=== PATIENT | male | born 1985 | race Caucasian/White ===

== ENCOUNTER 2017-07-05 09:44 | Emergency (ER) | payer OTHER ==
[2017-07-05 09:55] VITALS: BP 158/101
--- NOTE | 2017-07-05 10:33 | EDM.PDOC ---
ED HPI GENERAL MEDICAL PROBLEM - General Chief Complaint: Skin Complaint Stated Complaint: RASH/POSS. ALLERGIC REACTION Time Seen by Provider: 07/05/17 09:55 Source of Information: Reports: Patient History Limitations: Reports: No Limitations - History of Present Illness INITIAL COMMENTS - FREE TEXT/NARRATIVE: The patient presents with a generalized rash. This started about 1 week ago. The patient traveled to [place] for vacation. He was in the [facility]. The rash is itchy. It is all over his body except his face, palms, and soles of the feet. He denies any medication use. He has no new detergents, soaps, or lotions. He has never had a rash like this before. Onset: Gradual Duration: Week(s): (1) Location: Reports: Generalized Severity: Moderate Improves with: Reports: None Worsens with: Reports: None Associated Symptoms: Reports: No Other Symptoms - Related Data Allergies Allergy/AdvReac Type Severity Reaction Status Date / Time No Known Allergies Allergy Verified 07/05/17 09:55 Home Meds: Home Meds Prednisone [IJD: predniSONE] 40 mg PO WITHBREAKFAST #10 tab 07/05/17 [Rx] Social & Family History - Tobacco Use Smoking Status *Q: Never Smoker - Caffeine Use Caffeine Use: Reports: Soda - Recreational Drug Use Recreational Drug Use: No ED ROS GENERAL - Review of Systems Review Of Systems: See Below Constitutional: Reports: No Symptoms HEENT: Reports: No Symptoms Respiratory: Reports: No Symptoms Cardiovascular: Reports: No Symptoms Endocrine: Reports: No Symptoms GI/Abdominal: Reports: No Symptoms : Reports: No Symptoms Musculoskeletal: Reports: No Symptoms Skin: Reports: Rash (Urticaria) ED EXAM, SKIN/RASH Exam: See Below Exam Limited By: No Limitations General Appearance: Alert, No Apparent Distress Ears: Normal External Exam Nose: Normal Inspection Head: Atraumatic, Normocephalic Neck: Normal Inspection Respiratory/Chest: No Respiratory Distress, Lungs Clear, Normal Breath Sounds Cardiovascular: Regular Rate, Rhythm, No Edema, No Murmur GI/Abdominal: Soft, Non-Tender, No Organomegaly, No Mass Back Exam: Normal Inspection Extremities: Normal Inspection Neurological: Alert, Oriented, No Motor/Sensory Deficits Skin: Rash (Urticaria) Course - Vital Signs Last Recorded V/S: Last Vital Signs Temp 97.5 F 10/05/17 09:52 Pulse 68 07/05/17 09:52 Resp 16 07/05/17 09:52 BP 158/101 H 07/05/17 09:52 Pulse Ox 99 07/05/17 09:52 - Re-Assessments/Exams Free Text/Narrative Re-Assessment/Exam: 07/05/17 10:33 He has urticaria probably from something in the environment in [place]. I will get him on some prednisone, benadryl, and pepcid. Departure - Departure Time of Disposition: 10:35 Disposition: Home, Self-Care 01 Condition: Good Clinical Impression: Urticaria Allergic reaction Qualifiers: Encounter type: initial encounter Qualified Code(s): T78.40XA - Allergy, unspecified, initial encounter - Discharge Information Prescriptions: Prednisone [IJD: predniSONE] 40 mg PO WITHBREAKFAST #10 tab Referrals: Nicole Lee PA-C [Physician Churn Operator] - 1 Week Additional Instructions: Take the prednisone 40mg daily for 5 days. Take benadryl 50mg every 6 hours as needed for itching. Take pepcid 20mg daily for 5 days. Please return if you are worse. Follow up with Nicole Lee in 1 week.
== END 2017-07-05 10:46 | disposition home or self-care (01) ==
LOC: JD.ED 09:44
DX: L50.0 Allergic urticaria (principal)
CPT/HCPCS: 99283

== ENCOUNTER 2017-07-23 22:04 | Emergency (ER) | payer OTHER ==
[~2017-07-23 22:04] MED LIST: Haloperidol Lactate 5 MG/ML SDV IM ONE; Haloperidol Lactate 5 MG/ML SDV ONE; Ketamine 500 mg/10 ML MDV IM ONE; Ketamine 500 mg/10 ML MDV ONE; LORazepam 2 MG/ML MDV IM ONE; LORazepam 2 MG/ML MDV ONE; diphenhydrAMINE 50 MG/ML SDV IM ONE; diphenhydrAMINE 50 MG/ML SDV ONE
[2017-07-23] MEDS ORDERED: Atropine 0.1 MG/ML 10 ML Syringe ONE (22:10)
[2017-07-23] MEDS ORDERED: Sodium Chloride 0.9% 1,000 ML IV ONE (22:59)
[2017-07-23 23:11] VITALS: BP 138/99
--- NOTE | 2017-07-23 23:34 | EDM.PDOCBH ---
<LeslieJhon Nabeel - Last Filed: 07/24/17 07:35> ED HPI GENERAL MEDICAL PROBLEM - General Chief Complaint: Behavioral/Psych Stated Complaint: LAW ENFORCEMENT Time Seen by Provider: 07/23/17 22:10 - Related Data Allergies Allergy/AdvReac Type Severity Reaction Status Date / Time No Known Allergies Allergy Verified 07/05/17 09:55 Home Meds: Home Meds Prednisone [IJD: predniSONE] 40 mg PO WITHBREAKFAST #10 tab 07/05/17 [Rx] COURSE, BEHAVIORAL HEALTH COMP - Course Vital Signs: Last Vital Signs Temp 98.8 F 07/23/17 23:05 Pulse 90 07/23/17 23:05 Resp 16 07/23/17 23:05 BP 138/99 H 07/23/17 23:05 Pulse Ox 100 07/23/17 23:05 Orders, Labs, Meds: Active Orders 24 hr Category Date Time Status EKG 12 Lead [EKG Documentation Completion] [RC] STAT Care 07/23/17 23:00 Active Restraint/S VIOL/SD Continue 18 - Older [OM.PC] .4 Oth 07/24/17 01:00 Ordered HOURS Restraint/S VIOL/SD Initiate 18 - Older [OM.PC] Stat Oth 07/23/17 21:00 Ordered Laboratory Tests 07/23/17 07/23/17 07/23/17 Range/Units 22:00 22:00 22:00 WBC 13.77 H (4.23-9.07) K/mm3 RBC 4.75 (4.63-6.08) M/mm3 Hgb 14.1 (13.7-17.5) gm/L Hct 41.7 (40.1-51.0) % MCV 87.8 (79.0-92.2) fl MCH 29.7 (25.7-32.2) pg MCHC 33.8 (32.2-35.5) g/dl RDW Std Deviation 40.3 (35.1-43.9) fL Plt Count 202 (163-337) K/mm3 MPV 11.4 (9.4-12.3) fl Neut % (Auto) 75.1 H (34.0-67.9) % Lymph % (Auto) 17.2 L (21.8-53.1) % Platte % (Auto) 6.8 (5.3-12.2) % Eos % (Auto) 0.4 L (0.8-7.0) Baso % (Auto) 0.2 (0.1-1.2) % Neut # (Auto) 10.34 H (1.78-5.38) K/mm3 Lymph # (Auto) 2.37 (1.32-3.57) K/mm3 Platte # (Auto) 0.94 H (0.30-0.82) K/mm3 Eos # (Auto) 0.05 (0.04-0.54) K/mm3 Baso # (Auto) 0.03 (0.01-0.08) K/mm3 Sodium 141 (136-145) mEq/L Potassium 3.3 L (3.5-5.1) mEq/L Chloride 104 (98-107) mEq/L Carbon Dioxide 22 (21-32) mEq/L Anion Gap 18.3 H (5-15) BUN 16 (7-18) mg/dL Creatinine 1.3 (0.7-1.3) mg/dL Est Cr Clr Drug Dosing TNP Estimated GFR (MDRD) > 60 (>60) mL/min BUN/Creatinine Ratio 12.3 L (14-18) Glucose 165 H (74-106) mg/dL Calcium 9.3 (8.5-10.1) mg/dL Total Bilirubin 0.5 (0.2-1.0) mg/dL AST 21 (15-37) U/L ALT 13 L (16-63) U/L Alkaline Phosphatase 43 L (46-116) U/L Total Protein 7.2 (6.4-8.2) g/dl Albumin 3.9 (3.4-5.0) g/dl Globulin 3.3 gm/dL Albumin/Globulin Ratio 1.2 (1-2) TSH 3rd Generation 2.627 (0.358-3.74) uIU/mL Urine Color (Yellow) Urine Appearance (Clear) Urine pH (5.0-8.0) Ur Specific Roscoe (1.005-1.030) Urine Protein (Negative) Urine Glucose (UA) (Negative) Urine Ketones (Negative) Urine Occult Blood (Negative) Urine Nitrite (Negative) Urine Bilirubin (Negative) Urine Urobilinogen (0.2-1.0) Ur Leukocyte Esterase (Negative) Urine RBC (0-5) /hpf Urine WBC (0-5) /hpf Ur Epithelial Cells (0-5) /hpf Amorphous Sediment (NOT SEEN) /hpf Urine Bacteria (FEW) /hpf Fine Granular Casts (0-5) /lpf Urine Mucus (FEW) /hpf Urine Opiates Screen Negative (NEGATIVE) Ur Buprenorphine Scrn Negative (NEGATIVE) Ur Oxycodone Screen Negative (NEGATIVE) Urine Methadone Screen Negative (NEGATIVE) Ur Propoxyphene Screen Negative (NEGATIVE) Ur Barbiturates Screen Negative (NEGATIVE) Ur Tricyclics Screen Negative (NEGATIVE) Ur Phencyclidine Scrn Negative (NEGATIVE) Ur Amphetamine Screen Negative (NEGATIVE) U Methamphetamines Scrn Negative (NEGATIVE) U Benzodiazepines Scrn Negative (NEGATIVE) U Cocaine Metab Screen Negative (NEGATIVE) U Marijuana (THC) Screen Presumptive positive H (NEGATIVE) Ethyl Alcohol 0.00 (0.00) gm% 07/23/17 Range/Units 22:30 WBC (4.23-9.07) K/mm3 RBC (4.63-6.08) M/mm3 Hgb (13.7-17.5) gm/L Hct (40.1-51.0) % MCV (79.0-92.2) fl MCH (25.7-32.2) pg MCHC (32.2-35.5) g/dl RDW Std Deviation (35.1-43.9) fL Plt Count (163-337) K/mm3 MPV (9.4-12.3) fl Neut % (Auto) (34.0-67.9) % Lymph % (Auto) (21.8-53.1) % Platte % (Auto) (5.3-12.2) % Eos % (Auto) (0.8-7.0) Baso % (Auto) (0.1-1.2) % Neut # (Auto) (1.78-5.38) K/mm3 Lymph # (Auto) (1.32-3.57) K/mm3 Platte # (Auto) (0.30-0.82) K/mm3 Eos # (Auto) (0.04-0.54) K/mm3 Baso # (Auto) (0.01-0.08) K/mm3 Sodium (136-145) mEq/L Potassium (3.5-5.1) mEq/L Chloride (98-107) mEq/L Carbon Dioxide (21-32) mEq/L Anion Gap (5-15) BUN (7-18) mg/dL Creatinine (0.7-1.3) mg/dL Est Cr Clr Drug Dosing Estimated GFR (MDRD) (>60) mL/min BUN/Creatinine Ratio (14-18) Glucose (74-106) mg/dL Calcium (8.5-10.1) mg/dL Total Bilirubin (0.2-1.0) mg/dL AST (15-37) U/L ALT (16-63) U/L Alkaline Phosphatase (46-116) U/L Total Protein (6.4-8.2) g/dl Albumin (3.4-5.0) g/dl Globulin gm/dL Albumin/Globulin Ratio (1-2) TSH 3rd Generation (0.358-3.74) uIU/mL Urine Color Yellow (Yellow) Urine Appearance Slt cloudy H (Clear) Urine pH 6.5 (5.0-8.0) Ur Specific Roscoe > or = 1.030 (1.005-1.030) Urine Protein 1+ H (Negative) Urine Glucose (UA) Negative (Negative) Urine Ketones 1+ H (Negative) Urine Occult Blood Trace-intact H (Negative) Urine Nitrite Negative (Negative) Urine Bilirubin Negative (Negative) Urine Urobilinogen 0.2 (0.2-1.0) Ur Leukocyte Esterase Negative (Negative) Urine RBC 0-5 (0-5) /hpf Urine WBC 0-5 (0-5) /hpf Ur Epithelial Cells 0-5 (0-5) /hpf Amorphous Sediment Moderate H (NOT SEEN) /hpf Urine Bacteria Moderate H (FEW) /hpf Fine Granular Casts 5-10 H (0-5) /lpf Urine Mucus Moderate H (FEW) /hpf Urine Opiates Screen (NEGATIVE) Ur Buprenorphine Scrn (NEGATIVE) Ur Oxycodone Screen (NEGATIVE) Urine Methadone Screen (NEGATIVE) Ur Propoxyphene Screen (NEGATIVE) Ur Barbiturates Screen (NEGATIVE) Ur Tricyclics Screen (NEGATIVE) Ur Phencyclidine Scrn (NEGATIVE) Ur Amphetamine Screen (NEGATIVE) U Methamphetamines Scrn (NEGATIVE) U Benzodiazepines Scrn (NEGATIVE) U Cocaine Metab Screen (NEGATIVE) U Marijuana (THC) Screen (NEGATIVE) Ethyl Alcohol (0.00) gm% Medications Discontinued Medications Generic Name Dose Route Start Last Admin Trade Name Aleksey PRN Reason Stop Dose Admin Diphenhydramine HCl 50 mg 07/23/17 21:40 07/23/17 23:02 Benadryl IM 07/23/17 21:41 50 mg ONETIME ONE Administration Haloperidol Lactate 10 mg 07/23/17 21:15 07/23/17 23:00 Haldol IM 07/23/17 21:16 10 mg ONETIME ONE Administration Haloperidol Lactate 5 mg 07/23/17 21:40 07/23/17 23:01 Haldol IM 07/23/17 21:41 5 mg ONETIME ONE Administration Haloperidol Lactate 5 mg 07/24/17 01:33 07/24/17 01:36 Haldol IVPUSH 07/24/17 01:34 5 mg ONETIME ONE Administration Haloperidol Lactate Confirm 07/24/17 01:38 07/24/17 02:11 Haldol Administered 07/24/17 01:39 Not Given Dose 5 mg .ROUTE .STK-MED ONE Sodium Chloride 1,000 mls @ 999 mls/hr 07/23/17 22:59 07/23/17 23:03 Normal Saline IV 07/23/17 23:59 999 mls/hr ONETIME ONE Administration Ketamine HCl 320 mg 07/23/17 21:50 07/23/17 23:02 Ketalar IM 07/23/17 21:51 320 mg ONETIME ONE Administration Ketamine HCl Confirm 07/24/17 02:00 07/24/17 02:11 Ketalar Administered 07/24/17 02:01 Not Given Dose 500 mg .ROUTE .STK-MED ONE Ketamine HCl 80 mg 07/24/17 02:10 07/24/17 02:22 Ketalar IV 07/24/17 02:11 80 mg ONETIME ONE Administration Lorazepam 2 mg 07/23/17 21:25 07/23/17 22:59 Ativan IM 07/23/17 21:26 2 mg ONETIME ONE Administration Lorazepam 1 - 2 mg 07/24/17 00:46 07/24/17 01:24 Ativan IVPUSH 07/24/17 00:47 2 mg ONETIME ONE Administration Lorazepam Confirm 07/24/17 00:52 07/24/17 01:25 Ativan Administered 07/24/17 00:53 Not Given Dose 2 mg .ROUTE .STK-MED ONE Lorazepam 1 - 2 mg 07/24/17 01:17 07/24/17 01:25 Ativan IVPUSH 07/24/17 01:18 2 mg ONETIME ONE Administration Re-Assessment/Re-Exam: Patient still agitated modest improvement with the last 2 mg of Ativan we'll give him his third milligram and a fourth milligram if needed. Patient remained restless and ultimately needed another dose of ketamine he was given 80 mg IV, 1 mg/kg. He was resting at the time EMS transported him. Departure - Departure Time of Disposition: 01:00 Disposition: DC/Tfer to [facility] 02 Clinical Impression: Altered level of consciousness, Combative behavior, Physical restraints status Facial fracture Qualifiers: Encounter type: initial encounter Facial bone/location: other facial bone Fracture type: closed Laterality: left Qualified Code(s): S02.82XA - Fracture of other specified skull and facial bones, left side, initial encounter for closed fracture - Discharge Information Referrals: PCP,None [Primary Care Provider] - Forms: ED Department Discharge - My Orders Last 24 Hours: My Active Orders 07/23/17 21:00 Restraint/S VIOL/SD Initiate 18 - Older [OM.PC] Stat 07/23/17 23:00 EKG 12 Lead [EKG Documentation Completion] [RC] STAT 07/24/17 01:00 Restraint/S VIOL/SD Continue 18 - Older [OM.PC] .4 HOURS - Assessment/Plan Last 24 Hours: My Active Orders 07/23/17 21:00 Restraint/S VIOL/SD Initiate 18 - Older [OM.PC] Stat 07/23/17 23:00 EKG 12 Lead [EKG Documentation Completion] [RC] STAT 07/24/17 01:00 Restraint/S VIOL/SD Continue 18 - Older [OM.PC] .4 HOURS <Juanpablo Dunne - Last Filed: 07/24/17 19:32> ED HPI GENERAL MEDICAL PROBLEM - General Source of Information: Reports: Police History Limitations: Reports: Altered Mental Status, Combative/Threatening - History of Present Illness INITIAL COMMENTS - FREE TEXT/NARRATIVE: Patient is a 32-year-old male who was brought in by [place] [employer] handcuffed having behavioral issues. Per PD patient was at his residence with his girlfriend. Per girlfriend patient was acting crazy, agitated, hallucinating , saying inappropriate things. He has multiple psych issues along with history of methamphetamine use. Prior to arrival to the ED [employer] [employer] notified the ER that the patient was uncooperative going to fight. Patient was removed from the back of the police SUV fighting with pediatric hospitalist requiring patient to be forced to the ground and restrained. Patient was alert and moving all extremities. Patient wouldn't make eye contact and answer any questions. Past Medical History - Past Health History Medical/Surgical History: Denies Medical/Surgical History Psychiatric History: Reports: Suicidal Ideation Social & Family History - Family History Family Medical History: Noncontributory - Tobacco Use Smoking Status *Q: Unknown Ever Smoked - Caffeine Use Caffeine Use: Reports: None - Recreational Drug Use Recreational Drug Use: Yes Recreational Drug Type: Reports: Methamphetamine ED ROS GENERAL - Review of Systems Review Of Systems: Unable To Obtain ED EXAM, BEHAVIORAL HEALTH - Physical Exam Exam: See Below Exam Limited By: Combative/Threatening General Appearance: Alert Eye Exam: Bilateral Eye: EOMI (Eyes and moving in all directions with no nystagmus.), PERRL Ears: Normal Canal, Hearing Grossly Normal Nose: Normal Inspection, Other. No: Nasal Tenderness, Nasal Deformity (Dried blood to the nares bilaterally.) Throat/Mouth: Normal Oropharynx, Normal Voice, No Airway Compromise Head: Other (Small abrasion noted to the middle aspect of his forehead with minimal swelling. Mild swelling to the left eyebrow with faint ecchymosis to the upper eyelid present. Minimal pain with palpation. No obvious bony abnormalities present. No pain noted to the maxilla and mandible with palpation. ) Neck: Normal Inspection, Supple, Non-Tender, Full Range of Motion Respiratory/Chest: No Respiratory Distress, Lungs Clear, Normal Breath Sounds, No Accessory Muscle Use, Chest Non-Tender Cardiovascular: Normal Peripheral Pulses, Regular Rate, Rhythm GI/Abdominal: Normal Bowel Sounds, Soft, Non-Tender, No Organomegaly, No Distention Back Exam: Normal Inspection Extremities: Normal Inspection, Normal Range of Motion, Non-Tender Neurological: Alert, CN II-XII Intact, No Motor/Sensory Deficits Psychiatric: Alert, Restless, Agitated, Uncooperative Skin Exam: Warm, Dry, Normal color COURSE, BEHAVIORAL HEALTH COMP - Course Re-Assessment/Re-Exam: 2114 Haldol 10 mg IM was ordered. This minimally improved the patients level of agitation. He was moved to the stretcher with soft restraints placed to the upper and lower extremities. Upon arrival into the ED bed #2 patient became more belligerent required additional sedation attempted with 2 mg of Ativan IM at 2124. 2139 This did not work and thus additional 5 mg of Haldol and Benadryl 50 mg IM administered. 2149 Again this did not work and thus we went ahead with ketamine 4 mg/kg estimating the patient weighs approximately 80 kg. 2199 patient is adequately chemically sedated with ketamine. Vital signs are stable. 2207 Nursing staff notified me that the patient started to pedro down heart rate in the 40s. On evaluation, the patient he was unconscious, diaphoretic, breathing rate 12, O2 sats on 97%, with ETCO2 of 19. Laid the patient back down to more supine position. Pulses were present and increased to 80 beats per minute blood pressure 123/Systolic, Diaphoresis resolved. Patient remains unconscious with patent airway. He is heavily chemically sedated at this point. Patent had a vagal episode. IV will be established with ns 999 mL per hour. Initial labs and studies include: CBC, chem 14, TSH, serum EtOH, urine drug tox, UA, EKG, and also head CT without contrast. EKG sinus tachycardia rate of [address] changes. 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 1111 [facility] called with results of head CT. Nondisplaced fracture of the anterior/ parasagittal left frontal bone extending inferiorly to involve the left superior orbital rim and oral route. Questionable additional nondisplaced fracture of the squamosal portion of the left temporal bone. No acute intracranial hemorrhage or mass effect. Labs reviewed: White blood cell count 13.77, hemoglobin 14.1, platelet count 202 , neutrophil percent is 75.1, neutrophil number is 10.34, sodium 141, potassium 3.3, CO2 22, AG 18.3, creatinine 1.3, glucose was 165, TSH 2.67. UA slightly cloudy, protein one plus, ketones 1+, trace intact blood, moderate amorphous sediment, urine bacteria moderate, fine granular casts 5-10, urine mucus moderate. Urine drug tox positive for THC. Serum EtOH 0.00. 1135 Reassessment, patient is resting comfortably. Vital signs blood pressure 140/80, heart rate 83, SPO2 100%. 1144 Called [facility] admission coordinator and spoke with Dr. Angeles on-call Neurosurgeon. Shared results of Head CT with him. Nonsurgical at this point. ICU beds were limited per admission coordinator. Admission case by case. Unclear if patient would be admission to ICU. Decided to speak with Dr. Maxwell to see if he will admit. [address] Maxwell, requests patient be transferred to [place] due to injuries and behavioral/psych issues. [address] Anton Intensivists at [facility]. Does not believe patient requires ICU admission. Suggests admit to floor here in [place]. [place] has one bed on the medical floor. Do not believe they will take patient. [address] Maldonado degreasing solution reclaimer Hospitalist and Dr. Triplett ER Physician at [facility]. Dr. Maldonado has accepted the patient. Due to ambulance transporting a patient already from [facility] to [facility] transport will be delayed. Dr. Maldonado requests patient go through the ER and have Dr. Gray evaluate the patient to ensure he is safe to go to the floor. 1245 Patient has awoken and is uncooperative. Ordered ativan 1-2mg IVP. Discussed patient with Dr. Nelson he will be managing the patient in the E.D. until transported. It is my end of shift. Departure - Departure Condition: Fair
[2017-07-24] MEDS ORDERED: LORazepam 2 MG/ML MDV IVPUSH ONE ×2 (00:46→01:17)
[2017-07-24] MEDS ORDERED: LORazepam 2 MG/ML MDV ONE (00:52)
[2017-07-24] MEDS ORDERED: Haloperidol Lactate 5 MG/ML SDV IVPUSH ONE (01:33)
[2017-07-24] MEDS ORDERED: Haloperidol Lactate 5 MG/ML SDV ONE (01:38)
[2017-07-24] MEDS ORDERED: Ketamine 500 mg/10 ML MDV ONE (02:00)
[2017-07-24] MEDS ORDERED: Ketamine 500 mg/10 ML MDV IV ONE (02:10)
--- NOTE | 2017-07-24 07:38 | CT ---
Head CT Technique: Multiple axial sections through the brain were obtained. Intravenous contrast was not utilized. Comparison: No previous intracranial imaging. Findings: Ventricles along with basal cisterns and sulci over the convexities are within normal limits for the patient's age. No abnormal parenchymal densities are seen. No evidence of intracranial hemorrhage. No midline shift or mass effect is seen. Fluid is seen within the sphenoid and right maxillary sinus as well as partial opacification seen within the upper left maxillary sinus. Mild areas of mucosal thickening are seen within the ethmoid sinuses. Soft tissue swelling is seen within the left frontal scalp. There is a fracture being seen involving the superior left orbital rim and left orbital roof with questionable intracranial extension into the left frontal floor. No other calvarial abnormality is seen. Impression: 1. Left-sided skull fracture as described above. 2. No acute intracranial abnormality is identified. 3. Overlying soft tissue swelling within the scalp in the area of fracture is seen. 4. Fluid within the paranasal sinuses likely relating to previous trauma representing blood. Diagnostic code #3 Agree with preliminary report issued by [employer] [facility] ([facility] preliminary report dictated on 07/24/17, 12:18 AM Central Time)
== END 2017-07-24 02:00 ==
LOC: JD.ED 22:04
DX: S02.82XA Fracture of other specified skull and facial bones, left side, initial encounter for closed fracture (principal); R46.89 Other symptoms and signs involving appearance and behavior; R40.4 Transient alteration of awareness; X58.XXXA Exposure to other specified factors, initial encounter
CPT/HCPCS: 36415; 70450; 80053; 80306; 81001; 84443; 85025; 93005; 96361; 96372; 96374; 96375; 96376; 99285; G0480; J1200; J1630; J2060; J7040; P9612; 93010